=== PATIENT | male | born 1975 | race Caucasian/White ===

== ENCOUNTER 2019-09-11 22:30 | Emergency (ER) | payer OTHER ==
[~2019-09-11 22:30] MED LIST: LIDOCAINE PATCH REMOVAL MC SCH
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
[2019-09-11 23:12] VITALS: TEMP 97.6; BMI 30.4
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
[2019-09-11] MEDS ORDERED: LIDOCAINE 5% TOPICAL PATCH TP ONE ×2 (23:14)
[2019-09-11] MEDS ORDERED: METHOCARBAMOL 500 MG TABLET PO ONE (23:14)
[2019-09-11] MEDS ORDERED: IBUPROFEN 600 MG TABLET (FP) PO ONE ×2 (23:14→23:20)
[2019-09-11] MEDS ORDERED: METHOCARBAMOL 500 MG TABLET ONE (23:20)
[2019-09-11] MEDS ORDERED: LIDOCAINE 5% TOPICAL PATCH ONE (23:20)
[2019-09-12 01:19] VITALS: BP 144/94; PULSE 94
== END 2019-09-12 01:50 | disposition home or self-care (01) ==
LOC: JER 22:30
DX: S86.812A Strain of other muscle(s) and tendon(s) at lower leg level, left leg, initial encounter (principal); M54.2 Cervicalgia; X50.9XXA Other and unspecified overexertion or strenuous movements or postures, initial encounter; X02 Exposure to controlled fire in building or structure; Y93.89 Activity, other specified; Y92.89 Other specified places as the place of occurrence of the external cause; Y99.0 Civilian activity done for income or pay
CPT/HCPCS: 72125-TC; 73562-TC-LT-FY; 99284-25